=== PATIENT | female | born 1985 | race Caucasian/White ===

== ENCOUNTER 2018-01-19 18:42 | Inpatient (IN) | payer OTHER ==
[~2018-01-19] VITALS: Ht 160 cm; Wt 56.3 kg
--- NOTE | 2018-01-19 19:07 | ED GENERAL ADULT ---
History of Present Illness General Chief Complaint: ETOH/Drug Related Complaint Stated Complaint: ETOH DETOX Source: patient, family, old records Exam Limitations: intoxication Vital Signs & Intake/Output Vital Signs & Intake/Output Vital Signs Date Time Temp Pulse Resp B/P B/P Pulse O2 O2 Flow FiO2 Mean Ox Delivery Rate / 1845 99.7 98 18 74/52 03/05 1845 99.7 98 20 74/52 99 Room Air 03/05 1620 98.7 91 20 96/58 03/05 1616 98.7 91 20 98/58 98 Room Air 03/05 1404 97.7 101 18 84/56 03/05 1404 97.7 101 18 84/56 97 Room Air 03/05 1204 98.7 87 20 112/68 03/05 1203 98.7 87 20 112/68 99 Room Air 03/05 0953 98.8 80 18 94/56 03/05 0952 98.8 80 18 94/56 98 Room Air 03/05 0749 98.6 88 18 90/59 97 Room Air 03/05 0748 97.0 88 18 90/59 03/05 0532 98.0 85 16 96/56 03/05 0531 98.0 85 16 96/56 97 Room Air 03/05 0330 97.4 83 18 111/60 03/05 0330 97.4 83 18 111/60 97 Room Air 03/05 0148 97.0 94 16 122/83 99 Room Air 03/05 0140 97.0 94 16 122/83 03/04 2331 97.4 101 16 108/77 03/04 2330 97.4 101 16 108/77 99 Room Air ED Intake and Output 03/ 0000 03/04 1200 Intake Total Output Total Balance Patient 112 lb Weight Weight Reported by Patient Measurement Method Allergies Coded Allergies: No Known Allergies (12/17/17) Triage Note: PT REPORTS DRINKING 2 PINTS OF VODKA TODAY. REQUESTING ETOH DETOX. PT LEFT AMA LAST VISIT FOR SAME COMPLAINT. DENIES HISTORY OF SEIZURES WITH PAST DETOX. Triage Nurses Notes Reviewed? yes : No Patient currently breastfeeds: No HPI: Patient presents to the emergency department requesting help to stop drinking. Patient states that she was due to be admitted a month ago but ended up leaving AGAINST MEDICAL ADVICE. Patient states that she has been drinking a nipper to per day to help with the nausea and the shakes since she left. Patient denies any suicidal or homicidal ideations. Patient denies any seizure history or DTs. Patient denies coingestions. Patient states that she gets very nauseous when she goes through withdrawals. (Jackie REID,Reggie Gan) Reconcile Medications Dicyclomine HCl 20 MG TABLET 1 TAB PO PRN ABDOMINAL PAIN (Reported) Pantoprazole Sodium 40 MG TABLET.DR 1 TAB PO DAILY AC STOMACH PROBLEMS ( Reported) (Sarah REID,[place]) Past History Travel History Traveled to [place] past 21 day No Medical History Any Pertinent Medical History? see below for history Gastrointestinal: colitis, GASTRITIS Psychiatric: alcohol dependence Surgical History Surgical History: non-contributory Psychosocial History What is your primary language Indonesian Tobacco Use: Current Daily Use Daily Tobacco Use Amount/Type: =< 4 Cigarettes daily ETOH Use: heavy use, alcoholic Illicit Drug Use: denies illicit drug use Family History Hx Contributory? No (Jackie REID,Reggie Gan) Review of Systems Review of Systems Constitutional: Reports: no symptoms. EENTM: Reports: no symptoms. Respiratory: Reports: no symptoms. Cardiovascular: Reports: no symptoms. GI: Reports: see HPI, nausea. Genitourinary: Reports: no symptoms. Musculoskeletal: Reports: no symptoms. Skin: Reports: no symptoms. Neurological/Psychological: Reports: no symptoms. Hematologic/Endocrine: Reports: no symptoms. Immunologic/Allergic: Reports: no symptoms. All Other Systems: Reviewed and Negative (Jackie REID,Reggie Gan) Physical Exam Physical Exam General Appearance: well developed/nourished, alert, awake, intoxicated Head: atraumatic, normal appearance Eyes: Bilateral: PERRL, EOMI. Ears, Nose, Throat: normal pharynx, normal ENT inspection, hearing grossly normal Neck: normal inspection, supple, full range of motion Respiratory: normal breath sounds, chest non-tender, no respiratory distress, lungs clear Cardiovascular: regular rate/rhythm, normal peripheral pulses Gastrointestinal: normal bowel sounds, soft, non-tender Back: normal inspection, normal range of motion Extremities: normal inspection, normal capillary refill, normal range of motion, no edema Neurologic/Psych: no motor/sensory deficits, awake, alert, oriented x 3, normal mood/affect Skin: intact, normal color, warm/dry Lymphatic: no anterior cervical lakeisha Core Measures ACS in differential dx? No CVA/TIA Diagnosis: No Sepsis Present: No Sepsis Focused Exam Completed? No (Jackie REID,Reggie Gan) Progress Differential Diagnoses I considered the following diagnoses in my evaluation of the patient: [Alcohol intoxication, alcohol dependency and acute withdrawal] Plan of Care: Orders Procedure Date/time Status Admit to inpatient 01/[address] in observation 01/19 2137 Active ED Holding Orders 01/19 2137 Active Patient Data 01/19 2137 Active Vital Signs 01/19 2137 Active Code Status 01/19 2137 Active TOTAL TRIODOTHYROXINE 01/19 1925 Complete FREE T4 01/19 1925 Complete Intake & Output 01/19 1911 Active Current Medications Sig/Shelby Start time Last Medication Dose Stop Time Status Admin Acetaminophen 975 MG ONCE ONE 01/20 2015 UNVr (Tylenol) 01/21 2016 Sodium Chloride 1,000 ML BOLUS ONE 01/20 194 AC 01/20 (Normal Saline 0.9%) 01/21 2044 194 Sodium Chloride 1,000 ML BOLUS ONE 01/20 1945 AC (Normal Saline 0.9%) 01/21 2044 Clonidine 0.1 MG TID 01/20 1237 AC 01/20 (Catapres) 1747 Gabapentin 300 MG Q8 01/19 2200 AC 01/20 (Neurontin) 1438 Laboratory Tests 01/19/182024: Urine Opiates Screen < 100, Methadone Screen < 40, Barbiturate Screen < 60, Ur Phencyclidine Scrn < 6.00, Amphetamines Screen < 100, U Benzodiazepines Scrn < 85, Urine Cocaine Screen < 50, Urine Cannabis Screen < 5.00, Urine Test NEGATIVE 11:24 PM 01/19 PATIETN SIGNED OUT TO ME BY DR FREIRE, PENDING CRISIS EVALUATION. (Sarah REID,[place]) Initial ED EKG: none Hand-Off Endorsed To: [place] Smith MD Endorsed Time: 2300 Pending: consult, other (CISHANIQUE) (Reggie Freire MD) Hand-Off Endorsed To: Americo Escalona MD Endorsed Time: 0700 Pending: consult (CM), other (CIWA SCORES) ([place] Smith MD) Hand-Off Endorsed To: Rianna REID,Arnulfo Karimi Endorsed Time: 1900 Pending: other (case mgmt/husky) (Pola REID,Americo) Departure Departure Disposition: STILL A PATIENT Condition: Stable Clinical Impression Primary Impression: Alcohol intoxication Secondary Impressions: Transaminitis Referrals: Patient Has No Primary Care Dr (PCP/Family) Departure Forms: Customer Survey General Discharge Information (Jackie REID,Reggie Gan) Admission Note Spoke With: Ayanna Cintrno MD Documentation of Exam: Documentation of any treatments & extenuating circumstances including Concerns Regarding Discharge (functional status, medication knowledge or non-compliance, living conditions, etc.) that warrant an admission rather than observation: pt with alcoholism, cleared for inpatient detox. (Rianna REID,Arnulfo Karimi) Critical Care Note Critical Care Note Critical Care Time: non-applicable (Reggie Freire MD) Critical Care Time: non-applicable (Reggie Freire MD)
[2018-01-19 19:45] LABS: ABSOLUTE BASOPHIL COUNT 0 /CUMM (0.0-0.2); ABSOLUTE EOSINOPHIL COUNT 0.1 /CUMM (0.0-0.7); ABSOLUTE GRANULOCYTE CT 1.4 /CUMM (1.4-6.5); ABSOLUTE LYMPH COUNT 1.9 /CUMM (1.2-3.4); ABSOLUTE MONOCYTE COUNT 0.5 /CUMM (0.10-0.60); BASOPHIL % 0.8 % (0.0-2.0); EOSINOPHIL % 1.7 % (0-5); GRANULOCYTE % 36.3 % (42.2-75.2); HEMATOCRIT 38.3 % (37-47); MEAN CORPUSCULAR HGB 28.1 PG (27.0-31.0); MEAN CORPUSCULAR HGB CONC 31.8 G/DL (33.0-37.0); MEAN CORPUSCULAR VOLUME 88.4 FL (81.0-99.0); PLATELET COUNT 194 /CUMM (130-400); RBC DISTRIBUTION WIDTH 18.6 % (11.5-14.5); RED BLOOD CELL CT 4.34 /CUMM (4.20-5.40); WHITE BLOOD CELL COUNT 3.9 /CUMM (4.8-10.8)
[2018-01-19] MEDS ORDERED: PANTOPRAZOLE SO40 M1 PO (21:17)
[2018-01-19] MEDS ORDERED: DICYCLOMINE HCL20 M1 PO (21:19)
[2018-01-19 23:31] VITALS: BP 108/77
[2018-01-20] VITALS (10 sets, daily range): BP systolic 74–122; BP diastolic 52–83
--- NOTE | 2018-01-20 20:30 | History & Physical ---
Erin Danielle MD 01/20/182028: General Information and [facility] MD Statement: I have seen and personally examined ALIN LYNN and documented this H&P. The patient is a 32 year old F who presented with a patient stated chief complaint of alcohol withdrawal Source of Information: patient, old records Exam Limitations: no limitations History of Present Illness: Patient is a 32-year-old female with a past medical history significant for alcohol dependence, gastritis, colitis, oophorectomy secondary to ovarian cyst at age 19, psoriasis, that comes to see us for alcohol detox. The patient states that she started drinking alcohol at the age of 21 and has had problems ever since. She states that she had been in on and off drinker, was recently sober for 4 years until last May when she relapsed. In July she [facility] and [place] but left after a few days. In October she tried [facility] in [place] but also left after a few days. In November she tried [facility] but also left after a few days. Of note the patient was here a few weeks ago for alcohol detox but states that she "wasn't ready" and left AMA to go back to drinking. The patient denies any history of seizures associated with alcohol. She states that she drinks now only to help stave off withdrawal symptoms. She denies any suicidal or homicidal ideations. She denies any other drug use. Her last drink was yesterday and consisted of 2 pints of vodka. The patient states that normally she drinks 3-4 pints of vodka starting in the morning. She endorses diaphoresis , heaving, muscle soreness when she withdraws. She last vomited this morning. She states that she hasn't eaten much in the past 7-8 days and feels very "on edge". The patient states that she has many stressors including recent divorce, loss of car, job, custody brooke that resulted in her child being taken away from her. The patient used to see a psychiatrist but after he moved away she has not followed up with anyone. Apparently her old psychiatrist gave her Ritalin which works for her anxiety but a new psychiatrist stated that she would not prescribe Ritalin for somebody with alcohol problems. The patient states that she does not like Xanax as it leaves her feeling "zonked". The patient also states that BuSpar and bupropion did not work as well. The patient currently lives with her father who does not drink and only recently discovered her issues with alcohol. She does have a past family history significant for alcohol problems. She states that she smokes cigarettes only when drinking, 3-4 cigarettes, no drug use. The patient is sexually active with her boyfriend and admits to not using protection. Concerning her psoriasis, the patient notes that she has been very itchy in the past but is not currently experiencing symptoms. She has several scars remaining from past outbreaks and states that she would like to start taking Taltz. She states that her psoriasis flares whenever she drinks. Of note, the patient was diagnosed in August with colitis and gastritis after being admitted for abdominal pain. She had a colonoscopy which showed a tear in her large intestine and an EGD which showed gastritis. The patient was placed on a PPI. She had not had abdominal pain sense until today. She notes that the pain is in the lower abdomen and right side on palpation. She has had 2 bouts of diarrhea. Allergies/Medications Allergies: Coded Allergies: No Known Allergies (12/17/17) Home Med list Dicyclomine HCl 20 MG TABLET 1 TAB PO PRN ABDOMINAL PAIN (Reported) Pantoprazole Sodium 40 MG TABLET.DR 1 TAB PO DAILY AC STOMACH PROBLEMS ( Reported) Compliance With Home Meds: FAIR Past History Travel History Traveled to [place] past 21 day No Medical History Blood Transfusion Hx: No Neurological: NONE EENT: NONE Cardiovascular: NONE Respiratory: NONE Gastrointestinal: colitis, GASTRITIS Hepatic: NONE Renal: NONE Musculoskeletal: NONE Psychiatric: alcohol dependence Endocrine: NONE Blood Disorders: NONE Cancer(s): NONE FIELD IDENTIFICATION SPECIALIST/Reproductive: NONE Surgical History Surgical History: non-contributory Past Family/Social History Family History Relations & Conditions if any Relation not specified for: FH: alcoholism Psychosocial History Smoking Status: Never Smoked ETOH Use: heavy use, alcoholic Illicit Drug Use: denies illicit drug use Sexual History Sexually Active Yes Use of Protection No Review of Systems Review of Systems Constitutional: Reports: diaphoresis. EENTM: Reports: no symptoms. Cardiovascular: Reports: no symptoms. Respiratory: Reports: no symptoms. GI: Reports: abdominal pain. Genitourinary: Reports: no symptoms. Musculoskeletal: Reports: muscle pain. Skin: Reports: see HPI. Neurological/Psychological: Reports: anxiety. Hematologic/Endocrine: Reports: no symptoms. Immunologic/Allergic: Reports: no symptoms. All Other Systems: Reviewed and Negative Exam & Diagnostic Data Last 24 Hrs of Vital Signs/I&O Vital Signs Date Time Temp Pulse Resp B/P B/P Pulse O2 O2 Flow FiO2 Mean Ox Delivery Rate 01/20 2134 98.8 94 20 93/57 03/2131 98.8 94 20 93/57 99 Room Air /2019 99.7 /1844 99.7 98 18 74/52 / 184 99.7 98 20 74/52 99 Room Air 03/05 1620 98.7 91 20 96/58 03/05 1616 98.7 91 20 98/58 98 Room Air 03/05 1404 97.7 101 18 84/56 03/05 1404 97.7 101 18 84/56 97 Room Air 03/05 1204 98.7 87 20 112/68 03/05 1203 98.7 87 20 112/68 99 Room Air 03/05 0953 98.8 80 18 94/56 03/05 0952 98.8 80 18 94/56 98 Room Air 03/05 0749 98.6 88 18 90/59 97 Room Air 03/05 0748 97.0 88 18 90/59 Intake & Output 03/06 0800 03/06 0000 03/05 1600 Intake Total Output Total Balance Number 2 Bowel Movements Patient 109 lb Weight Weight Reported by Patient Measurement Method Physical Exam General Appearance Alert, Oriented X3, Cooperative, No Acute Distress Skin No Rashes, No Breakdown, No Significant Lesion Skin Temp/Moisture Exam: Warm/Dry Sepsis Skin Exam (color): Normal for Ethnicity HEENT Atraumatic, PERRLA, EOMI, Mucous Membr. moist/pink Neck Supple Cardiovascular Regular Rate, Normal S1, Normal S2, No Murmurs Lungs Clear to Auscultation, Normal Air Movement Abdomen Normal Bowel Sounds, Soft, No Hepatospenomegaly, No Masses, tender in lower abdomen and right side on palpation Neurological Normal Speech, fine tremors bilaterally Extremities No Clubbing, No Cyanosis, No Edema, Normal Pulses, No Tenderness/ Swelling Vascular Normal Pulses, Pulses Symmetrical Sepsis Peripheral Pulse Location: Radial Sepsis Peripheral Pulse Exam: Normal Sepsis Cap Refill Exam: <2 Sec Assessment/Plan Assessment: Patient is a 32-year-old female with a past medical history significant for alcohol dependence, gastritis, colitis, oophorectomy secondary to ovarian cyst at age 19, psoriasis, that comes to see us for alcohol detox. The patient has had a long history with alcohol and repeated attempts at rehabilitation. The patient has a psychiatric history of anxiety, not treated currently and she uses alcohol to self medicate. The patient also states that she has colitis and gastritis diagnosed last August with a return of abdominal pain today that she had not experienced since then. In the ED, vitals found to be temperature of 97.4-99.7, pulse rate between 83 and 101, respiratory rate around 18, blood pressure 122/83 that dropped to 74/52 after being dosed clonidine and that then responded to fluids. WBC count was found to be 3.9, sodium 147, potassium 3.7, creatinine normal, AST 174, a LT 108 , alkaline phosphatase 70, total bilirubin 0.5, magnesium 1.8, test negative, U tox negative, alcohol level elevated, low TSH but normal free T4 and total T3. Plan Alcohol detox -Ativan per CIWA -Standing dose of Ativan 2 mg every 6 hours -Banana bag now and then multivitamin, thiamine, folic acid by mouth as tolerated -Put patient on clear liquid diet and advance as tolerated -Social work and psych consults Elevated liver function enzymes: Likely secondary to alcoholic damage as AST predominates about 2:1 -Follow-up LFTs -Hepatitis panel -Tylenol level Abdominal pain and diarrhea with history of colitis and gastritis -Patient will be on IV pantoprazole as she is nauseous -Continue patient's outpatient dicyclomine for IBS spasms -Guaiac stools as patient previously had GI bleed back when she was diagnosed with colitis and gastritis in August Chronic medical problems -Continue patient's outpatient trazodone for sleep Patient is full code We will start with clear liquid diet and advance as tolerated DVT prophylaxis with Lovenox and Alps As Ranked By This Provider Problem List: 1. Transaminitis 2. Anxiety 3. Alcohol dependence Core Measures/Misc (08/04) Acute Coronary Syndrome ACS Diagnosis: No Congestive Heart Failure Congestive Heart Failure Diagnosis No Cerebrovascular Accident CVA/TIA Diagnosis: No VTE (View Protocol) VTE Risk Factors Acute Medical Illness No Mechanical VTE Prophylaxis d/t N/A MechProphylax Ordered No VTE Pharm Prophylaxis d/t NA PharmProphylax ordered Sepsis (View protocol) Sepsis Present: No Abdulaziz REID, [facility] 01/20/18 2226: Attending MD Review Statement Attending Statement Attending MD Statement: examined this patient, discuss w/resident/PA/CURRICULUM ASSISTANT, agreed w/resident/PA/CURRICULUM ASSISTANT, reviewed images, amended to note Attending Assessment/Plan: 32 yo F with h/o alcohol dependence since age 21 yrs, been through multiple detoxes in the past, most recently (Oct 2017) at [facility] but she was kicked out of the facility for drinking, then came to [facility] (Nov 2017) requesting detox but left AMA. She returns to ER 1 day prior requesting detox. Patient states she has been drinking 4 pints of Vodka daily and her last drink was prior to coming to ER. She denies h/o alcohol withdrawal seizures or DT's. She c/o nausea, retching but did not vomit. She has a poor appetite and reports lower abdominal discomfort. Denies urinary symptoms, diarrhea/ constipation, fever or chills. Of note, she was diagnosed with colitis due to sodomy and required surgical repair. She has anxiety and depression, but is currently not on any medications. She is a current everyday smoker, but denies drug use. She denies SI or HI. Vitals stable except for hypotension to 74/52 (dropped after she received clonidine) that responded to IV fluids. Exam: AAO, dry mucous membranes, young thin female with BMI 19, in no distress. Chest clear, Heart S1S2 regular, Abd soft, diffuse soreness, lower abdominal tenderness, BS+. Labs: WBC 3.9, Na 147, AG 21, AST 174, ALT 108. Utox negative, Alcohol level 516. Urine negative. Assessment and plan: 1. Alcohol withdrawal 2. Transaminitis 2/2 alcohol use 3. Dehydration, hypernatremia 4. Alcohol induced gastritis 5. Transient hypotension 2/2 drugs 6. Severe anxiety 7. Lower abdominal pain ?etiology 8. Smoker - Admit to general medicine - WA protocol - IV ativan per CINJ - PO ativan 2 mg Q6 - Banana bag then MVI/ thiamine/ folic acid - IV hydration or encourage PO intake - Maintain SBP > 90 - IV Pantoprazole, anti-emetics - Trend LFTs, check hepatitis panel and tylenol levels - Clear liquid diet, advance as tolerated - Check urinalysis to rule out UTI - If lower abdominal symptoms persist, consider CT abd - Trazodone for insomnia - Psych consult to help with anxiety - Social work consult - Smoking cessation counseling, nicotine patch DVT ppx Lovenox. Full code. Vicky Ferguson 01/21/18 0834: Resident Review Statement Resident Statement: examined this patient, discussed with international account manager, agreed with international account manager, discussed with nursing, reviewed images Other Findings: 32 yo lady with a long standing history history of alcohol dependence and previous detox, jyothi presented to ED requesting detox. she was admitted to general medicine floor for alcohol withdrawal, transaminitis, will start her on standing dose ativan ,ciwa protocol/ativan per ciwa, banana bag, thiamin, folic acid, multivitamin, will repeat LFT at am, social consult, full code, dvt ppx: sc lovenox
--- NOTE | 2018-01-20 22:27 | Admission Certification ---
Admission Certification Certification Statement - As attending physician, I certify that at the time of - admission, based on clinical presentation, severity of - symptoms, need for further diagnostic testing and - therapeutic interventions, and risk of adverse outcomes - without in-hospital treatment, in my clinical assessment, - this patient requires an acute hospital stay for a minimum - of two nights or longer. I have also considered psychsocial - factors such as support system, advanced age, financial - issues, cognitive issues, and failed out-patient treatments, - past re-admission history, safety of patient, and lack of - compliance as applicable. Specific rationale supporting this admission is: Alcohol withdrawal.
[2018-01-21 07:39] VITALS: BP 102/60
--- NOTE | 2018-01-21 11:21 | PN- Housestaff ---
Marci Alaniz MD,[facility] 01/21/18 1121: Subjective Follow-up For: Alcohol detox Elevated LFTs Abdominal pain and diarrhea Subjective: Patient visited today, was lying in bed comfortably in no acute distress, was alert and oriented. Requested to advance the diet to regular. No fever or chills, no shortness of breathing, no chest pain, no other events. CIWA: 0-11 Review of Systems Constitutional: Reports: see HPI. Objective Last 24 Hrs of Vital Signs/I&O Vital Signs Date Time Temp Pulse Resp B/P B/P Pulse O2 O2 Flow FiO2 Mean Ox Delivery Rate 01/21 0739 98.2 66 20 102/60 98 01/20 2134 98.8 94 20 93/57 01/20 2132 98.8 94 20 93/57 99 Room Air 01/21 2020 99.7 01/20 1845 99.7 98 18 74/52 01/20 1845 99.7 98 20 74/52 99 Room Air 01/20 1620 98.7 91 20 96/58 01/20 1616 98.7 91 20 98/58 98 Room Air 01/20 1404 97.7 101 18 84/56 03/ 1404 97.7 101 18 84/56 97 Room Air Intake & Output 01/21 1600 01/21 0800 01/21 0000 Intake Total Output Total Balance Number 2 2 Bowel Movements Patient 124 lb 109 lb Weight Weight Reported by Patient Measurement Method Physical Exam General Appearance: Alert, Oriented X3, Cooperative, No Acute Distress Skin: No Significant Lesion Skin Temp/Moisture Exam: Warm/Dry HEENT: Atraumatic, EOMI, Mucous Membr. moist/pink Cardiovascular: Regular Rate, Normal S1, Normal S2 Lungs: Clear to Auscultation, Normal Air Movement Abdomen: Soft, No Tenderness, mild tenderness in deep palpitation in the right side Neurological: Normal Speech, Strength at 5/5 X4 Ext, tremor Extremities: No Edema Current Medications: Current Medications Sig/Shelby Start time Last Medication Dose Route Stop Time Status Admin Acetaminophen 0 .STK-MED ONE 01/21 2024 DC PO Acetaminophen 975 MG ONCE ONE 01/20 2015 DC 01/20 PO 01/20 Clobetasol Propionate 1 LUL DAILY PRN 01/21 1000 AC TOP Clonidine 0 .STK-MED ONE 01/20 1751 CAN PO Clonidine 0.1 MG TID 01/20 1237 DC 01/20 PO 1747 Cyanocobalamin/ 1 BAG ONCE ONE 01/20 2030 DC 01/21 Thiamine/Pyridoxine IV 01/21 0429 0506 Sodium Chloride 1,000 ML Dicyclomine HCl 20 MG BID 01/21 0300 AC 01/21 PO 1132 Enoxaparin Sodium 40 MG DAILY 01/21 1000 AC 01/21 SC 1132 Folic Acid 1 MG DAILY 01/21 1000 AC 01/21 PO 1129 Gabapentin 0 .STK-MED ONE 01/20 1443 DC PO Gabapentin 300 MG Q8 01/19 2200 DC 01/20 PO 2246 Influenza Virus 0.5 ML ONCE ONE 01/21 1000 DC 01/21 Vaccine IM 01/21 1001 1131 Ketorolac 30 MG ONCE ONE 01/20 1830 DC 01/20 Tromethamine IV 01/20 1831 1820 Ketorolac 0 .STK-MED ONE 01/20 1823 DC Tromethamine .ROUTE Lorazepam 1.5 MG Q6 01/21 1800 AC PO Lorazepam 2 MG Q6 01/20 2359 DC 01/21 PO 1130 Lorazepam 2 MG Q6H 01/20 2030 DC PO Lorazepam See Dose Q1P PRN 01/20 2030 AC Insts (1) IV Magnesium Oxide 400 MG ONE ONE 01/21 0930 DC 01/21 PO 01/21 0931 1132 Magnesium Oxide 400 MG BID 01/20 2200 AC 01/21 PO 1133 Multivitamins 1 TAB DAILY 01/21 1000 AC 01/21 PO 1136 Omeprazole 40 MG DAILY AC 01/21 0700 DC 01/21 PO 0527 Ondansetron HCl 4 MG Q6P PRN 01/21 0545 AC IV Pantoprazole Sodium 40 MG DAILY 01/21 1000 AC 01/21 IV 1132 Sodium Chloride 1,000 ML BOLUS ONE 01/20 1945 DC 01/20 IV 01/20 Sodium Chloride 1,000 ML BOLUS ONE 01/20 194 DC 01/20 IV 01/20 Thiamine HCl 100 MG DAILY 01/21 1000 AC 01/21 PO 113 Trazodone HCl 50 MG AT BEDTIME 01/21 2200 AC PO Dose Instructions: (1)Lorazepam: See Admin Criteria Last 24 Hrs of Lab/Lito Results Last 24 Hrs of Labs/Mics: Laboratory Tests 01/21/18 0800: Urine Color TANJA, Urine Clarity CLEAR, Urine pH 6.0, Ur Specific Dailey 1.015, Urine Protein 30 H, Urine Ketones TRACE H, Urine Nitrite POS H, Urine Bilirubin NEG@ICTO, Urine Urobilinogen 1.0, Ur Leukocyte Esterase NEG, Ur Microscopic SEDIMENT EXAMINED, Urine RBC RARE, Urine WBC 5-10 H, Ur Epithelial Cells MANY H, Urine Mucus MOD H, Micro UA Comment , Urine Hemoglobin NEG, Urine Glucose NEG 01/21/18 0721: Anion Gap 10, Estimated GFR > 60, BUN/Creatinine Ratio 20.0, Phosphorus 3.2, Magnesium 1.3 L, Total Bilirubin 0.8, Direct Bilirubin 0.2, AST 502 H, ALT 145 H, Alkaline Phosphatase 57, Total Protein 5.5 L, Albumin 2.9 L, Hepatitis A IgM Ab NONREACTIVE, Hep Bs Antigen NONREACTIVE, Hep B Core IgM Ab Conf NONREACTIVE, Hepatitis C Antibody NONREACTIVE, Acetaminophen < 10.0 L Orders CIWA Score (last 24 hrs): 0-11 Assessment/Plan Assessment: Patient is a 32-year-old female with a past medical history significant for alcohol dependence, gastritis, colitis, oophorectomy secondary to ovarian cyst at age 19, psoriasis, that comes to see us for alcohol detox. The patient has had a long history with alcohol and repeated attempts at rehabilitation. The patient has a psychiatric history of anxiety, not treated currently and she uses alcohol to self medicate. The patient also states that she has colitis and gastritis diagnosed last August with a return of abdominal pain today that she had not experienced since then. In the ED, vitals found to be temperature of 97.4-99.7, pulse rate between 83 and 101, respiratory rate around 18, blood pressure 122/83 that dropped to 74/52 after being dosed clonidine and that then responded to fluids. WBC count was found to be 3.9, sodium 147, potassium 3.7, creatinine normal, AST 174, a LT 108 , alkaline phosphatase 70, total bilirubin 0.5, magnesium 1.8, test negative, U tox negative, alcohol level elevated, low TSH but normal free T4 and total T3. Patient was admitted to GM floor for management of following conditions: Alcohol detox CIWA 0-11 ovenight -Ativan per CIWA -Standing dose of Ativan 2 mg every 6 hours -Banana bag now and then multivitamin, thiamine, folic acid by mouth as tolerated -Put patient on clear liquid diet and advance as tolerated -Social work and psych consults Elevated liver function enzymes: Likely secondary to alcoholic damage as AST predominates about 2:1, patient also has RUQ tendernes, we will continue monitor. -Follow-up LFTs -Hepatitis panel -Tylenol level Abdominal pain and diarrhea with history of colitis and gastritis -Patient will be on IV pantoprazole as she is nauseous -Continue patient's outpatient dicyclomine for IBS spasms -Guaiac stools as patient previously had GI bleed back when she was diagnosed with colitis and gastritis in August Chronic medical problems -Continue patient's outpatient trazodone for sleep Patient is full code Regular diet DVT prophylaxis with Lovenox and Alps Problem List: 1. Alcohol intoxication 2. Transaminitis Pain Ratin Pain Location: None Pain Goal: Pain 4 or less Pain Plan: Continue current plan Tomorrow's Labs & Rationales: Regis Benz 01/21/18 1220: Attending MD Review Statement Attending Statement Attending MD Statement: examined this patient, discuss w/resident/PA/HOURLY MANAGER, agreed w/resident/PA/HOURLY MANAGER, discussed with family, reviewed EMR data (avail), discussed with nursing, discussed with case mgmt, reviewed images, amended to note Attending Assessment/Plan: 32 yo lady with a long standing history history of alcohol dependence and previous detox, psoriais presented to ED requesting detox. She is admitted to general medicine floor for alcohol withdrawal, transaminitis, Continue with ciwa protocol/ativan per denise, banana bag, thiamine, folic acid, multivitamin, social consult, full code, dvt ppx: sc lovenox.
--- NOTE | 2018-01-21 11:54 | Cons- Psychiatry ---
See Addendum Psychiatric Consult Date of Consult: 01/21/18 Reason for Consult: "Anxiety untreated alcoholism to self medicate" History of Present Illness: 32-year-old single, domicile, female, presented to the ED on 2017 at 1909 with a chief complaint of requesting alcohol detox. On a previous visit to the emergency department, she left [place] for the same complaint. All labs reviewed. Serum alcohol level upon admission is 516, potassium 140H, anion gap 21H, glucose 115H, AST 174H/ALT 108H, TSH 0.255L. potassium, calcium and magnesium are all within normal limits. Per the H&P, the patient reports that she began drinking at age 21, and has had several detox experiences, including an IOP at [facility] in [place]. In July 2017, she entered her first rehabilitation program in [place], but left after a few days. In October 2017, she entered as CRC in [place] but also left after a few days. In November 2017, she was in [facility] but left after a few days, due to not feeling safe, and complains that there were drugs and promiscuous behavior, and she drank alcohol while she was there. The patient had reported that she no longer sees her psychiatrist, as he had moved away and she has not continued treatment. She reports that the psychiatrist gave her Ritalin for her anxiety. She had also been on Xanax, which she complains made her feel "zonked," also BuSpar and bupropion which did not work very well. She has had a recent divorce, and loss of her a job at a custody [employer] resulting in her child being taken away from her. She currently has a boyfriend, and is living with her father. She has been diagnosed with colitis and gastritis. As of 01/21/2018 at 0600, CIWA 0-5-6-0-6-5-2-1-2-11-0-2 She has received lorazepam 2 mg every 6, scheduled, for total of 6 mg in the last 24 hours. She has received lorazepam 2 mg as a one-time dose. Total lorazepam in the last 24 hours is 8 mg. Vital signs on 01/21/2018 as of 0739:102/60, 66, 98.2, 20, 98% on room air, pain level 2 Allergies: Coded Allergies: No Known Allergies (12/17/17) Past History Past Medical History Neurological: NONE EENT: NONE Cardiovascular: NONE Respiratory: NONE Gastrointestinal: colitis, GASTRITIS Hepatic: NONE Renal: NONE Musculoskeletal: NONE Psychiatric: alcohol dependence Endocrine: NONE Blood Disorders: NONE Cancer(s): NONE REPAIR MECHANIC/Reproductive: NONE Past Surgical History Surgical History: non-contributory Psychosocial History Strengths/Capabilities: Motivated for treatment Physical Limitations (Interventions): None Psychiatric Treatment History Psych Treatment Psychiatric Treatment Yes Inpatient Treatment No Outpatient Treatment Yes Location of Treatment [facility] in [place] Reason for Treatment Alcohol use disorder Dates of Treatment ongoing, for many years Response to Treatment Unknown Diagnosis: Alcohol use disorder, recurrent, severe Substance induced mood disorder Rule out generalized anxiety disorder Risk Factors: limited support Substance Use/Abuse History Drug Use/Abuse Substances Used/Abused Yes Substance Used/Abused Alcohol First Use age 21 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 She is alert and oriented. She denies auditory, visual or tactile hallucinations, and presents no todd delusions. She denies suicidal ideation, homicidal ideation and denies any history of suicide attempts. She denies any psychiatric hospitalizations. She reports her mood is dull and bored, and she states she is feeling lethargic and achy. She reports that her last rehabilitation attempt with the [facility] in October , but she left after a few days, after drinking there. She denies any history of delirium tremens, detox in an ICU, and denies any history of seizures. Lab Results: Laboratory Tests 01/21 01/21 0800 0721 Chemistry Sodium (137 - 145 mmol/L) 136 L Potassium (3.5 - 5.1 mmol/L) 3.7 Chloride (98 - 107 mmol/L) 103 Carbon Dioxide (22 - 30 mmol/L) 23 Anion Gap (5 - 16) 10 BUN (7 - 17 mg/dL) 14 Creatinine (0.5 - 1.0 mg/dL) 0.7 Estimated GFR (>60 ml/min) > 60 BUN/Creatinine Ratio (7 - 25 %) 20.0 Phosphorus (2.5 - 4.5 mg/dL) 3.2 Magnesium (1.6 - 2.3 mg/dL) 1.3 L Total Bilirubin (0.2 - 1.3 mg/dL) 0.8 Direct Bilirubin (< 0.4 mg/dL) 0.2 AST (14 - 36 U/L) 502 H ALT (9 - 52 U/L) 145 H Alkaline Phosphatase (<127 U/L) 57 Total Protein (6.3 - 8.2 g/dL) 5.5 L Albumin (3.5 - 5.0 g/dL) 2.9 L Serology Hepatitis A IgM Ab (NONREACTIVE) NONREACTIVE Hep Bs Antigen (NONREACTIVE) NONREACTIVE Hep B Core IgM Ab Conf (NONREACTIVE) NONREACTIVE Hepatitis C Antibody (NONREACTIVE) NONREACTIVE Toxicology Acetaminophen (10.0 - 30.0 ug/mL) < 10.0 L Urines Urine Color (YEL,AMB,STR) TANJA Urine Clarity (CLEAR) CLEAR Urine pH (5.0 - 8.0) 6.0 Ur Specific Gasquet (1.001 - 1.035) 1.015 Urine Protein (NEG,<30 MG/DL) 30 H Urine Ketones (NEG) TRACE H Urine Nitrite (NEG) POS H Urine Bilirubin (NEG) NEG@ICTO Urine Urobilinogen (0.1 - 1.0 EU/dl) 1.0 Ur Leukocyte Esterase (NEG) NEG Ur Microscopic SEDIMENT EXAMINED Urine RBC (0 - 5 /HPF) RARE Urine WBC (0 - 2 /HPF) 5-10 H Ur Epithelial Cells (NONE,FEW) MANY H Urine Mucus (FEW,NONE) MOD H Micro UA Comment Urine Hemoglobin (NEG) NEG Urine Glucose (N MG/DL) NEG Diffential Diagnosis: Alcohol use disorder, recurrent, severe Substance induced mood disorder Rule out generalized anxiety disorder Impression: The patient is a 32-year-old female requesting assistance with alcohol detoxification, and assistance with aftercare planning. She lives in the [place] area she would prefer to enter into a alcohol and drug rehabilitation, followed by an intensive outpatient program. She has had experience with alcoholics anonymous and has had a sponsor, but has not been in contact with her recently. Her report of anxiety is most likely the result of substance use, but this can be further evaluated as she recovers physically and neurologically, to rule out the possibility of an underlying anxiety disorder. She had reported being on Ritalin for her anxiety, and also that she had been on Wellbutrin. Ritalin is not indicated in the setting of anxiety, as he can worsen it. Wellbutrin can lower the seizure threshold with people who are drinking chronically, and should be avoided. We will revisit the patient again before she leaves, but suggest that a social work consult be ordered to assist with her aftercare planning. All labs were reviewed. Provisional Treatment Plan: 1. Please continue the EtOH detox protocol, including daily thiamine, multivitamins and folic acid. The patient understands that she is to complete her treatment regimen here, and that if she leaves early, AGAINST MEDICAL ADVICE , no benzodiazepines will be provided for her. We will continue to follow along. Thank you for this consult request.
[2018-01-21 15:00] VITALS: BP 98/60
[2018-01-21 15:30] VITALS: BP 98/60
--- NOTE | 2018-01-21 17:44 | Event Note ---
Event Note Event Note: S: patient requesting to sign out AMA B: she was admitted requesting alcohol detox. She has a history of alcohol abuse and was admitted to for alcohol detox several weeks ago and signed out AMA. AR: Had a discussion with the patient at bedside. She wanted to leave AMA so that she could smoke a cigarette. The severety of the risks of leaving were discussed, including possible seizure and . She showed comprehesion of these risks, and understood her choices which included to stay and use a nicotine alternative and complete her treatment during her withdrawal or leave. She was able to articulate her diagnosis, treatment options, the risks involved, and her rationale for making her choice and was thus deemed to have decision making capacity. This patient was discussed with the HOD, Dr. Sharp. She was allowed to sign out AMA.
--- NOTE | 2018-01-21 18:02 | Patient Discharge Instructions ---
Discharge Instructions General Discharge Information You were seen/treated for: alcohol withdrawl Special Instructions: Recommend against leaving. Please follow-up in detoxification program as soon as possible. Call 911 if you have a seizure. Acute Coronary Syndrome Inclusion Criteria At DC or during hospital stay patient has or had the following: ACS DIAGNOSIS No Discharge Core Measures Meds if any: Prescribed or Continued at Discharge Meds if any: NOT Prescribed or Continued at Discharge Congestive Heart Failure Inclusion Criteria At DC or during hospital stay patient has or had the following: CHF DIAGNOSIS No Discharge Core Measures Meds if any: Prescribed or Continued at Discharge Meds if any: NOT Prescribed or Continued at Discharge Cerebrovascular accident Inclusion Criteria At DC or during hospital stay patient has or had the following: CVA/TIA Diagnosis No Discharge Core Measures Meds if any: Prescribed or Continued at Discharge Meds if any: NOT Prescribed or Continued at Discharge Venous thromboembolism Inclusion Criteria VTE Diagnosis No VTE Type NONE VTE Confirmed by (Test) NONE Discharge Core Measures - Per Current guidelines, there needs to be overlap - treatment for the first 5 days of Warfarin therapy. - If discharged on Warfarin prior to 5 days of - overlap therapy, the patient will need to be - assessed for post discharge needs including - *Post discharge parental anticoagulation - *Warfarin and/or parental anticoagulation education - *Follow up date to check INR post discharge At least 5 days overlap therapy as Inpatient No Meds if any: Prescribed or Continued at Discharge Note: Overlap Therapy is Warfarin and Anticoagulant Meds if any: NOT Prescribed or Continued at Discharge
--- NOTE | 2018-01-22 14:48 | Discharge Summary ---
Visit Information Visit Dates Admission Date: 01/20/18 Discharge Date: 01/21/18 Hospital Course Course Attending Physician: Regis Ferguson MD Primary Care Physician: Patient Has No Primary Care Dr Hospital Course: Patient is a 32-year-old female with a past medical history significant for alcohol dependence, gastritis, colitis, oophorectomy secondary to ovarian cyst at age 19, psoriasis, that presented to see us for alcohol detox. The patient has had a long history with alcohol and repeated attempts at rehabilitation. The patient had a psychiatric history of anxiety, not treated currently and she used alcohol to self medicate. The patient also stated that she has colitis and gastritis diagnosed last August with a return of abdominal pain today that she had not experienced since then. In the ED, vitals found to be temperature of 97.4-99.7, pulse rate between 83 and 101, respiratory rate around 18, blood pressure 122/83 that dropped to 74/52 after being dosed clonidine and that then responded to fluids. WBC count was found to be 3.9, sodium 147, potassium 3.7, creatinine normal, AST 174, a LT 108 , alkaline phosphatase 70, total bilirubin 0.5, magnesium 1.8, test negative, U tox negative, alcohol level elevated, low TSH but normal free T4 and total T3. Patient was admitted to [facility] floor for management of following conditions: Alcohol detox CIWA 0-11 ovenight, patient received Ativan per CIWA + Standing dose of Ativan 2 mg every 6 hours. we also adinistered Banana bag now and then multivitamin, thiamine, folic acid by mouth as tolerated. Social work and psych consults were placed. Patient requested to leave AMA, consult was performed, patient was capacitated and was discharged accepting assosiated risks. Elevated liver function enzymes: Likely secondary to alcoholic damage as AST predominated about 2:1, patient also has RUQ tendernes, we will continue monitor. Abdominal pain and diarrhea with history of colitis and gastritis -Patient will be on IV pantoprazole as she is nauseous -Continue patient's outpatient dicyclomine for IBS spasms -Guaiac stools as patient previously had GI bleed back when she was diagnosed with colitis and gastritis in August Chronic medical problems -Continue patient's outpatient trazodone for sleep Patient is full code Regular diet DVT prophylaxis with Lovenox and Alps patient left AMA with instrucstions below Allergies: Coded Allergies: No Known Allergies (12/17/17) Disposition Summary Disposition Principal Diagnosis: Alcohol detox Additional Diagnosis: Transaminitis Colitis Discharge Disposition: left against medical adv Discharge Instructions General Discharge Information Code Status: Full Code Patient's Diet: Regular as tolerated Patient's Activity: as tolerated Follow-Up Instructions/Appts: Recommend against leaving. Please follow-up in detoxification program as soon as possible. Call 911 if you have a seizure. Medications at Discharge Discharge Medications: Continue taking these medications: Pantoprazole Sodium (Pantoprazole Sodium) 40 MG TABLET.DR 1 Tablet ORAL DAILY BEFORE BREAKFAST Qty = 7 Dicyclomine HCl (Dicyclomine HCl) 20 MG TABLET 1 Tablet ORAL as needed for ABDOMINAL PAIN Qty = 60 Copies To: Regis Ferguson MD Attending MD Review Statement Documenting Attending: Regis Ferguson MD
== END 2018-01-21 18:33 | disposition left against medical advice (07) | DRG 770 ==
LOC: ERH 18:42 → ERHI 21:37 → ENRESERV 22:59 → CANRESERV 22:59 → 2NB 01-20 19:34 → EDBEDREQ 01-20 20:44 → ENRESERV 01-20 21:13 → ENTRNSPT 01-20 21:39 → EDTRNSPTSTS 01-20 21:48 → EDTRNSPT 01-20 21:48 → 2NB 01-20 21:55 → CMPTRNSPT 01-20 22:00 → 2NB 01-20 22:28
PROVIDERS: Physician Assistant
DX: F10.239 Alcohol dependence with withdrawal, unspecified (principal); R74.0 Nonspecific elevation of levels of transaminase and lactic acid dehydrogenase [LDH]; E87.0 Hyperosmolality and hypernatremia; E86.0 Dehydration; K29.20 Alcoholic gastritis without bleeding; F17.200 Nicotine dependence, unspecified, uncomplicated; T46.5X5A Adverse effect of other antihypertensive drugs, initial encounter; K52.9 Noninfective gastroenteritis and colitis, unspecified; L40.9 Psoriasis, unspecified; F41.9 Anxiety disorder, unspecified
CPT/HCPCS: 2NBP; 6040; 36415; 80307; 81001; 81025; 82436; 93005; 93010; 96374; 99232; G0378; G0480; J1650; J1885; J3101; J3490; J7060; Q2036

== ENCOUNTER 2018-02-26 15:01 | Emergency (ER) | payer OTHER ==
[~2018-02-26] VITALS: Ht 160 cm; Wt 50.8 kg
[~2018-02-26 15:01] MED LIST: DICYCLOMINE HCL20 M1 PO; PANTOPRAZOLE SO40 M1 PO
[2018-02-26 18:14] LABS: ABSOLUTE BASOPHIL COUNT 0.1 /CUMM (0.0-0.2); ABSOLUTE EOSINOPHIL COUNT 0 /CUMM (0.0-0.7); ABSOLUTE GRANULOCYTE CT 4.3 /CUMM (1.4-6.5); ABSOLUTE MONOCYTE COUNT 0.7 /CUMM (0.10-0.60); BASOPHIL % 0.9 % (0.0-2.0); EOSINOPHIL % 0.6 % (0-5); HEMATOCRIT 34.8 % (37-47); MEAN CORPUSCULAR HGB 28.7 PG (27.0-31.0); MEAN CORPUSCULAR HGB CONC 31.9 G/DL (33.0-37.0); MEAN CORPUSCULAR VOLUME 89.9 FL (81.0-99.0); MEAN PLATELET VOLUME 7.9 FL (7.4-10.4); PLATELET COUNT 242 /CUMM (130-400); RBC DISTRIBUTION WIDTH 16.2 % (11.5-14.5); RED BLOOD CELL CT 3.87 /CUMM (4.20-5.40); WHITE BLOOD CELL COUNT 7.1 /CUMM (4.8-10.8)
[2018-02-26 18:16] LABS: GRANULOCYTE % 60.5 % (42.2-75.2)
--- NOTE | 2018-02-26 20:28 | ED GENERAL ADULT ---
History of Present Illness General Chief Complaint: ETOH/Drug Related Complaint Stated Complaint: ETOH DETOX, PT STATES SHE IS A MEDICAL PT Source: patient Exam Limitations: no limitations Vital Signs & Intake/Output Vital Signs & Intake/Output Vital Signs Date Time Temp Pulse Resp B/P B/P Pulse O2 O2 Flow FiO2 Mean Ox Delivery Rate 02/27 0831 98.2 94 20 100/70 96 Room Air 02/27 0628 97.2 91 18 101/60 02/27 0619 97.2 91 18 101/60 98 Room Air 02/27 0148 97.0 91 16 90/49 02/27 0146 97.0 91 18 90/49 97 Room Air 02/26 2257 97.6 110 18 92/54 94 Room Air 02/26 2035 97.6 111 18 103/61 100 Room Air 02/26 1834 98 Room Air 02/26 1755 97.2 130 18 107/71 98 02/26 1521 98.1 153 18 122/81 98 Room Air ED Intake and Output 02/27 0000 02/26 1200 Intake Total 1000 Output Total Balance 1000 Intake, IV 1000 Patient 112 lb Weight Weight Reported by Patient Measurement Method Allergies Coded Allergies: No Known Allergies (12/17/17) Triage Note: HERE FOR ETOH DETOX, DRINKS VODKA DAILY, 3-4 PINTS PER DAY. LAST DRINK 1300. DENIES SI OR HI. RECNET ADMISSION TO [facility] FOR SAME. Triage Nurses Notes Reviewed? yes Onset: Abrupt Duration: week(s):, changing over time, continues in ED, getting worse Timing: recent history Injury Environment: home Severity: moderate, severe No Modifying Factors: none LMP (ages 10-50): unknown : No Patient currently breastfeeds: No HPI: 32-year-old female past medical history of alcohol dependence presents requesting alcohol detox. Patient states that she has been drinking 3-4 points of vodka daily for greater than a year. Her last drink was today and she drank 3 or 4 pints of vodka. She denies any drug use. No suicidal or homicidal ideation. He does note that she does have a seizure history but that it is not related to withdrawal as far she knows. Patient was seen here last month and was supposed to be admitted to the hospital but she left AGAINST MEDICAL ADVICE. She denies any hallucinations chest pain shortness of breath nausea vomiting diarrhea or any other associated symptoms. No psychiatric medications. (Paco Roland) Reconcile Medications No Known Home Medications (Amina REID,Mario Campuzano) Past History Travel History Traveled to [place] past 21 day No Medical History Any Pertinent Medical History? see below for history Neurological: NONE EENT: NONE Cardiovascular: NONE Respiratory: NONE Gastrointestinal: colitis, GASTRITIS Hepatic: NONE Renal: NONE Musculoskeletal: NONE Psychiatric: alcohol dependence Endocrine: NONE Blood Disorders: NONE Cancer(s): NONE OUTPATIENT CASE MANAGER/Reproductive: NONE History of MRSA: No History of VRE: No History of CDIFF: No Surgical History Surgical History: non-contributory Psychosocial History What is your primary language Korean Tobacco Use: Current Daily Use Daily Tobacco Use Amount/Type: => 5 Cigarettes daily ETOH Use: alcoholic Illicit Drug Use: denies illicit drug use Family History Family History, If Any: Relation not specified for: FH: alcoholism Hx Contributory? No (Paco Roland) Review of Systems Review of Systems Constitutional: Reports: no symptoms. EENTM: Reports: no symptoms. Respiratory: Reports: no symptoms. Cardiovascular: Reports: no symptoms. GI: Reports: no symptoms. Genitourinary: Reports: no symptoms. Musculoskeletal: Reports: no symptoms. Skin: Reports: no symptoms. Neurological/Psychological: Reports: no symptoms. Hematologic/Endocrine: Reports: no symptoms. Immunologic/Allergic: Reports: no symptoms. All Other Systems: Reviewed and Negative (Paco Roland) Physical Exam Physical Exam General Appearance: well developed/nourished, no apparent distress, alert, awake , anxious Head: atraumatic, normal appearance Eyes: Bilateral: normal appearance, PERRL, EOMI. Ears, Nose, Throat: normal pharynx, normal ENT inspection, hearing grossly normal Neck: normal inspection, supple, full range of motion Respiratory: normal breath sounds, chest non-tender, no respiratory distress, lungs clear Cardiovascular: regular rate/rhythm, normal peripheral pulses Peripheral Pulses: 2+ radial (R), 2+ radial (L) Gastrointestinal: normal bowel sounds, soft, non-tender, no organomegaly Back: normal inspection, normal range of motion, no vertebral tenderness Extremities: normal inspection, normal range of motion, no edema Neurologic/Psych: no motor/sensory deficits, awake, alert, oriented x 3, normal gait Skin: intact, normal color, warm/dry Lymphatic: no anterior cervical lakeisha Core Measures ACS in differential dx? No CVA/TIA Diagnosis: No Sepsis Present: No Sepsis Focused Exam Completed? No (Edinson GONZALEZ,Paco) Progress Differential Diagnoses I considered the following diagnoses in my evaluation of the patient: [Alcohol intoxication, alcohol withdrawal, drug withdrawal, drug intoxication, electrolyte abnormality, alcoholic hepatitis] Plan of Care: Orders Procedure Date/time Status Regular Diet 02/27 B Active CASE MANAGEMENT CONSULT 02/27 0134 Active CIWA 02/26 175 Active EKG 02/26 174 Active TROPONIN LEVEL 02/26 174 Complete URINE 02/26 1703 Complete URINE DRUG SCREEN FOR ER ONLY 02/26 1703 Complete URINALYSIS 02/26 1703 Complete MAGNESIUM 02/26 1703 Complete ETHANOL 02/26 1703 Complete COMPREHENSIVE METABOLIC PANEL 02/26 1703 Complete CBC WITHOUT DIFFERENTIAL 02/26 1703 Complete Laboratory Tests 02/26/18 1810: Urine Opiates Screen < 100, Methadone Screen 40, Barbiturate Screen < 60, Ur Phencyclidine Scrn < 6.00, Amphetamines Screen < 100, U Benzodiazepines Scrn < 85, Urine Cocaine Screen < 50, Urine Cannabis Screen < 5.00, Urine Color YEL, Urine Clarity CLEAR, Urine pH 6.0, Ur Specific [place] <= 1.005, Urine Protein NEG, Urine Ketones NEG, Urine Nitrite NEG, Urine Bilirubin NEG, Urine Urobilinogen 0.2, Ur Leukocyte Esterase SMALL H, Ur Microscopic SEDIMENT EXAMINED, Urine RBC RARE, Urine WBC 10-15 H, Ur Epithelial Cells FEW, Urine Bacteria MOD H, Urine Hemoglobin TRACE-INTACT, Urine Glucose NEG, Urine Test NEGATIVE 02/26/181747: Troponin I Cancelled 02/26/181746: Anion Gap 23 H, Estimated GFR > 60, BUN/Creatinine Ratio 21.3, Glucose 89, Calcium 9.8, Magnesium 1.9, Total Bilirubin 0.8, AST 157 H, ALT 100 H, Alkaline Phosphatase 66, Troponin I < 0.01, Total Protein 8.2, Albumin 5.1 H, Globulin 3.1, Albumin/Globulin Ratio 1.6, CBC w Diff NO MAN DIFF REQ, RBC 3.87 L, MCV 89.9, MCH 28.7, MCHC 31.9 L, RDW 16.2 H, MPV 7.9, Gran % 60.5, Lymphocytes % 27.8, Monocytes % 10.2 H, Eosinophils % 0.6, Basophils % 0.9, Absolute Granulocytes 4.3, Absolute Lymphocytes 2.0, Absolute Monocytes 0.7 H, Absolute Eosinophils 0, Absolute Basophils 0.1, Serum Alcohol 393.0 Patient seen and evaluated. She is here requesting alcohol detox. Her last requested a she does report a history of seizures but it is unclear if these are related to alcohol withdrawal. At initial evaluation patient is tachycardic to the 150s. IV fluids ordered with good effect. We'll check basic labs, EKG and CIWA. Blood work reveals an alcohol level of 393. Patient became anxious requesting to be medicated Dr. Blanca ordered Ativan and Haldol and Benadryl patient has been resting comfortably since. She'll be monitored overnight for signs of alcohol withdrawal and disposition determined in the morning. Patient SIGNED OUT to Dr. Blanca pending reevaluation. Initial ED EKG: none Hand-Off Endorsed To: Arnulfo Blanca MD Endorsed Time: 40 Pending: other (RAFAELAWA) (Paco Roland) Differential Diagnoses I considered the following diagnoses in my evaluation of the patient: Hand-Off Endorsed To: Mario Huynh MD Endorsed Time: 0700 (Arnulfo Blanca MD) Comments: 02/27/2018 8:09:46 AM patient signed out to me by Dr. Blanca at shift private branch exchange operator. The patient is CIWA scores are 0 at this point there seems to be no significant alcohol withdrawal symptomatology. I feel this patient is stable for outpatient detox. (Mario Huynh MD) Departure Departure Condition: Stable Referrals: Patient Has No Primary Care Dr (PCP/Family) Departure Forms: Customer Survey General Discharge Information (Paco Roland) PA/HEEL BOOM OPERATOR Co-Sign Statement Statement: ED Attending supervision documentation- [X] I saw and evaluated the patient. I have also reviewed all the pertinent lab results and diagnostic results. I agree with the findings and the plan of care as documented in the PA's/HEEL BOOM OPERATOR's documentation. [] I have reviewed the ED Record and agree with the PA's/HEEL BOOM OPERATOR's documentation. [] Additions or exceptions (if any) to the PAs/HEEL BOOM OPERATOR's note and plan are summarized below: [] ([place] MD,Arnulfo R.) Departure Disposition: HOME OR SELF CARE Clinical Impression Primary Impression: Alcohol intoxication Qualifiers: Complication of substance-induced condition: uncomplicated Qualified Code: F10.920 - Alcohol use, unspecified with intoxication, uncomplicated Secondary Impressions: Alcohol dependence Qualifiers: Substance use status: unspecified alcohol-induced disorder Qualified Code: F10.29 - Alcohol dependence with unspecified alcohol-induced disorder Alcoholic hepatitis Qualifiers: Ascites presence: unspecified Qualified Code: K70.10 - Alcoholic hepatitis without ascites Additional Instructions: Wean your alcohol intake. Your emergency department evaluation shows that the alcohol has irritated your liver. Follow-up with a detox program as soon as possible. Notify your primary care physician of this emergency department visit and treatment plan and arrange for follow-up appointment within the next 5-7 days to reevaluate your liver enzyme levels. If you do not currently have a primary care physician then please contact the [facility] primary care practice at the following phone number: . Return if any concerns or sudden worsening. Please note that there might be incidental findings in your evaluation that are unrelated to the current emergency department visit. Please notify your primary care doctor about this emergency department visit in order to obtain and review all of the testing performed so that these incidental findings can be monitored as needed. If you had an x-ray performed, please understand that some fractures may not be seen on the initial set of x-rays. If your symptoms persist you might need a repeat set of x-rays to check for such a fracture. If you had a laceration evaluated, please understand that foreign bodies such as glass or wood may not be visible to the naked eye or on plain x-rays. If the wound becomes red, swollen, increasingly more painful or if there is any drainage from the wound, please have it reevaluated by a physician for the possibility of a retained foreign body. If you're unable to follow up as outlined in the discharge instructions please return to the emergency department. Thank you for choosing the [facility] Emergency Department for your care. It was a pleasure to serve you today. Mario Huynh M.D. [facility] Prescriptions: Current Visit Scripts LORazepam (Ativan) 1 TAB PO TID PRN ALCOHOL WITHDRAWAL #16 TAB DAY 1:2 TAB 3X/DAY, DAY 2:1 TAB 4X/DAY, DAY 3: 1 TAB 3X/DAY, DAY 4:1 TAB 2X/DAY, DAY 5: 1 TAB (Amina REID,Mario Campuzano) Critical Care Note Critical Care Note Critical Care Time: non-applicable (Edinson GONZALEZ,Paco)
[2018-02-27] MEDS ORDERED: ATIVAN1 M1 PO (09:47)
[2018-02-27 11:09] VITALS: BP 103/71
== END 2018-02-27 11:10 ==
LOC: ERH 15:01
PROVIDERS: Physician Assistant Medical
DX: F10.129 Alcohol abuse with intoxication, unspecified (principal); F10.20 Alcohol dependence, uncomplicated; K70.10 Alcoholic hepatitis without ascites
CPT/HCPCS: 80307; 81001; 81025; 96372; G0480; J1200; J1630